=== PATIENT | male | born 1970 | race Caucasian/White ===

== ENCOUNTER 2019-10-19 13:50 | Emergency (ER) | payer OTHER ==
[~2019-10-19] VITALS: Ht 177.8 cm; Wt 95.5 kg
[2019-10-19 14:09] VITALS: Ht 177.8 cm; Wt 95.5 kg
[2019-10-19] MEDS ORDERED: NAPROSYN500 MG PO (16:51)
[2019-10-19] MEDS ORDERED: GABAPENTIN300 MG PO (16:51)
[2019-10-19 19:33] VITALS: BP 144/71
== END 2019-10-19 19:35 | disposition home or self-care (01) ==
LOC: D.ER 13:50
DX: M51.17 Intervertebral disc disorders with radiculopathy, lumbosacral region (principal)

== ENCOUNTER 2019-12-16 11:14 | Day surgery (SDC) | payer OTHER ==
[2019-12-14 14:53] LABS: HEMATOCRIT 46.4 % (42.0-54.0); MCH 30.8 pg (26.0-34.0); MCHC 34.5 g/dL (31.0-37.0); MCV 89.2 fL (80.0-100.0); MEAN PLATELET VOLUME 10.4 fL (7.4-10.4); RBC 5.2 10x6/uL (4.20-6.10); RDW 12.8 % (11.5-14.5); WBC 7.4 10x3/uL (4.8-10.8)
--- NOTE | 2019-12-14 15:27 | NUR ---
t- 97.6, pox- 95% rr- 16, hr- 112 bp la-142/92 bp ra, 137/93 PT STATED HE HAS A HX OF HTN AND WAS ON MEDICATION AT ONE TIME. STATES HE'S HAVING PAIN CURRENTLY IN HIS BACK.
[~2019-12-16] VITALS: Ht 180.3 cm; Wt 93.0 kg
[~2019-12-16 11:14] MED LIST: GABAPENTIN300 MG PO; NAPROSYN500 MG PO; NEURONTIN800 MG PO
[2019-12-16 12:31] VITALS: BP 132/84; Ht 180.3 cm; Wt 93.0 kg
[2019-12-16] MEDS ORDERED: HYDROCODON-ACE1 EA10 PO (14:17)
[2019-12-16] MEDS ORDERED: MEDROL DOSE PACK4 MG PO (14:17)
--- NOTE | 2019-12-16 17:37 | NUR ---
8581 CONTINUED NUMBNESS TO RIGHT LOWER LEG BEFORE SURGERY. SPOT ON DRAINGAE. NO CHANGE IN PAIN SINCE PACU OF 2MG OF DILAUDID IV. WILL MEDICATE PO AFTER A SNACK
--- NOTE | 2019-12-16 17:39 | NUR ---
1700 DR PATEL CALLED TO SEE IF PT CONTINUE HOME MEDS.
--- NOTE | 2019-12-16 18:15 | NUR ---
1809 VOIDED 1814 IV REMOVED AND FAMILY HAS RX FILLED.
--- NOTE | 2019-12-16 18:34 | NUR ---
1730 MEDICATED FOR PAIN 12/08. 1825 PAIN LEVEL A 09/08. PT VOIDED AND DRESSING WAS ERINFORCED. IV REMOVED AND INSTRUCTIONS GIVEN
--- NOTE | 2019-12-23 11:01 | OP ---
PATIENT NAME: ROSEMARY JOHNSON MEDICAL RECORD: [id number] :72 LOCATION:[facility] ADMISSION DATE: SURGEON: GALDINO PORTER MD DATE OF OPERATION: 12/16/2019 PREOPERATIVE DIAGNOSES: Left L5-S1 foraminal stenosis and spinal stenosis. POSTOPERATIVE DIAGNOSIS: Recurrent disc herniation, left L5-S1. PROCEDURE: Redo lumbar laminectomy, medial facetectomy, and foraminotomy at L5-S1, left with discectomy. SURGEON: Galdino Porter MD DESCRIPTION OF TECHNIQUE: After induction of general endotracheal anesthesia, the patient was rolled prone on a Robby frame. Lumbar spine was prepped and draped in usual sterile fashion. Fluoroscopic x-ray and spinal needle localized the L5-S1 interspace on the left side. After infiltration of 1:100,000 epinephrine and 1% lidocaine, a stab incision was created with a #11 blade. A series of dilators were used to advance a METRx retractor at the L5-S1 interspace on the left side. Level was confirmed with fluoroscopic x-ray. The previous laminotomy was extended with the Midas-Mark drill and as well as the medial facetectomy. Scar tissue was dissected away from the left L5 and S1 nerve roots under microscopic illumination. There was an obvious disc herniation within the axilla of the left S1 nerve root. This was removed with a combination of pituitary rongeurs and curettes. The spinal canal was swept with a [place] elevator and no further disc fragments were recovered. The left L5 and S1 nerve roots were decompressed well. Meticulous hemostasis was maintained throughout the wound. Wound was irrigated with copious amounts of Ancef irrigant solution. The retractor was removed. The fascia was closed with 2-0 Vicryl suture. The subdermal layer was closed with 3-0 Vicryl suture. The skin was closed with stefano. A sterile dressing was applied to the wound. The patient was awakened in good condition and taken to recovery. All counts were reported as correct. Estimated blood loss was minimal. NTS:[id number] Voice Confirmation ID: [id number] DOCUMENT ID: [id number] GALDINO PORTER MD at 1101 CC: [id number] DICTATION DATE: 12/22/19 1528 DIRECTOR PROJECT MANAGEMENT: 12/22/192124 [facility] 12/16/19 [facility] [address] [id number]
== END 2019-12-16 18:25 | disposition home or self-care (01) ==
LOC: D.OPS 11:14 → D.PAN 16:00 → D.OPS 18:25 → D.PAN 18:30
PROVIDERS: Anesthesiology; ATTEND Neurological Surgery
DX: M54.16 Radiculopathy, lumbar region (principal); M53.80 Other specified dorsopathies, site unspecified; I10 Essential (primary) hypertension; M51.27 Other intervertebral disc displacement, lumbosacral region